=== PATIENT | female | born 1960 | race Caucasian/White ===

== ENCOUNTER 2022-05-09 05:08 | Observation (INO) ==
--- NOTE | 2022-04-18 09:10 | PAT Medication Instructions ---
Medication Instructions Date of Service April 18, 2022 Home Medications bupropion HBr 348 mg tablet,extended release 24 hr 348 mg PO QAM bupropion HBr 522 mg tablet,extended release 24 hr 522 mg PO QAM metformin 850 mg tablet 425 mg PO QAM semaglutide 0.25 mg or 0.5 mg (2 mg/1.5 mL) subcutaneous pen injector (Ozempic) 0.5 mg subcut WK thyroid (pork) 30 mg tablet ([place] Thyroid) 30 mg PO QAM Continue as directed semaglutide 0.25 mg or 0.5 mg (2 mg/1.5 mL) subcutaneous pen injector (Ozempic) 0.5 mg subcut WK DO NOT take the morning of surgery metformin 850 mg tablet 425 mg PO QAM Take morning of surgery With a small sip of water, OTHERWISE NOTHING TO EAT OR DRINK AFTER MIDNIGHT: bupropion HBr 348 mg tablet,extended release 24 hr 348 mg PO QAM bupropion HBr 522 mg tablet,extended release 24 hr 522 mg PO QAM thyroid (pork) 30 mg tablet ([place] Thyroid) 30 mg PO QAM Other Notes If you have any questions please call us at [phone] or [phone] or [phone] or [phone]
--- NOTE | 2022-04-19 10:00 | History & Physical Report ---
Date of Service April 19, 2022 date of surgery: 05/02/22 Procedure: Right Total Knee Arthroplasty Surgeon: Luis Alberto Welch Assessment & Plan (1) Arthritis of right knee: Plan: Risk and benefits of procedure discussed in detail, patient like to proceed with right total knee replacement. She will need medical clearance from her PCP prior to the surgery, she is scheduled for her preadmission testing later today. She will also do her preop physical therapy appointment. Will place on aspirin 81 mg twice a day for 1 month postop DVT prophylaxis, will do overnight stay at the hospital discharge the following day with in-home physical therapy x2 weeks. Follow-up in our office 2 weeks postop for routine postoperative care, sooner if she is having any issues The risks and benefits have been discussed including, but not limited to, risk of infection, nerve injury, stiffness, loss of motion, failure to improve, etc. Reasonable outcomes and options of treatment were discussed. An explanation of appropriate alternatives to the procedure that may be advantageous were discussed and their risks and benefits, as well as the risks and benefits of not proceeding with treatment. I offered to answer any additional inquiries concerning the treatment involved. All the patient's questions were answered. The patient is agreeable, understanding of the treatment plan and alternatives, and wishes to proceed with the treatment plan. History of Present Illness Chief Complaint: Right knee pain Primary Care Provider: Marcella Brooks Lanreluz maria Beatriz is a 61 year old female who complains of right knee pain, presents for pre-op evaluation prior to a right total knee replacement by Dr Welch at [facility], [place]. she complains of pain, crepitus, decreased range of motion, instability and stiffness in her right knee. she states that the symptoms have been chronic and non-traumatic. Currently the patient states that the symptoms are moderate- severe. The pain is described as aching, sharp and throbbing. Her symptoms are aggravated by ascending stairs, daily activities, first steps while awake walking. she had prior left TKA by Dr Turner in 2016. Allergies Allergy/AdvReac Type Severity Reaction Status Date / Time No Known Allergies Allergy Verified 04/17/22 14:03 Home Medications Medication Instructions Recorded Confirmed Type bupropion HBr 348 mg 348 mg PO QAM 03/19/22 04/17/22 History tablet,extended release 24 hr bupropion HBr 522 mg 522 mg PO QAM 03/19/22 04/17/22 History tablet,extended release 24 hr metformin 850 mg tablet 425 mg PO QAM 03/19/22 04/17/22 History semaglutide 0.25 mg or 0.5 mg (2 0.5 mg subcut WK 03/19/22 04/17/22 History mg/1.5 mL) subcutaneous pen injector (Ozempic) thyroid (pork) 30 mg tablet 30 mg PO QAM 03/19/22 04/17/22 History ([place] Thyroid) Past Med/Surg History Medical History Depression Diabetes mellitus, type 2 History of COVID-2019 Hypothyroidism Morbid obesity Osteoarthritis Sleep apnea CPAP (compliant) Surgical History History of cataract surgery left History of open reduction and internal fixation (ORIF) procedure right ankle History of total left knee replacement Hx of colonoscopy S/P foot surgery left foot bone aneurysm at [facility] (Dr Frederick) 02/2022 Family History Other No family history of adverse response to anesthesia Social History Smoking Status: Never smoker Second Hand Exposure: No; Hx Alcohol Use: Yes Alcohol type: beer Hx Substance Use: No Preferred Language: Ukrainian Communication Ability: Effective Dairy Farm Operator Required: No Beliefs That Will Affect Care: None Current Living Situation: Spouse Feels Safe at Home: Yes Assistive Devices: CPAP and Glasses Review of Systems Review of Systems: All systems reviewed & are unremarkable except as noted in HPI & below Constitutional: no fever, no chills and no sweats Respiratory: no cough and no dyspnea Cardiovascular: no chest pain, no dyspnea and no orthopnea Gastrointestinal: no abdominal pain, no nausea and no vomiting Musculoskeletal: as per Subjective / HPI Physical Exam Physical Exam: HT: 5ft 4in WT: 112.95kg Constitutional: WD/WN, vitals as above no acute distress Respiratory: normal respiratory effort, lungs clear to auscultation no respiratory distress, no labored breathing and does not use accessory muscles Cardiovascular: RRR, no murmur, no edema Gastrointestinal (Abdomen): normal bowel sounds, soft, nontender, no hepatosplenomegaly Musculoskeletal: Knee: + knee abnormal to inspection (Right Knee:), + effusion (+1 effusion), + limited ROM of knee (ROM 0/3/110), + knee ROM with crepitation, + joint line tenderness (medial joint line) and + Joel's sign positive; no deformity, no skin erythema, no ecchymosis, no valgus laxity, no varus laxity, anterior drawer test negative, Ramone's sign negative and pivot shift test negative Results & Data Results & Data ([facility]) Diagnostic Findings Right Knee X-ray: Right knee series showing advanced degenerative changes to the right knee, narrowing of the medial compartment and patello-femoral joint with patellar spurring noted, findings showing joint space narrowing of the medial compartment and patello-femoral joint, osteophyte formation and subchondral sclerosis noted. overall varus alignment. no acute bony pathology noted.
--- NOTE | 2022-04-19 10:27 | Anesthesiology Consultation ---
Date of Service April 19, 2022 Assessment & Plan (1) Encounter for pre-operative examination: - COVID screening: Per assessment on 04/19: No known COVID-19 positive contacts or current COVID-19 related symptoms. Travel screen negative. At surgeon discretion if preop Covid testing being done. - Check BSG AM DOS - Outpatient joint assessment: Pt currently scheduled for inpatient pathway. If surgeon requests review for outpatient joint pathway, patient is not recommended candidate for outpatient joint program from anesthesia standpoint. Chart Review Chart Review: Acceptable Risk for Surgery and Patient seen in Pre Admission Testing Teaching & Discussion Pre-Anesthesia Teaching/Discussion Notes: Instructed NPO after midnight before surgery,except medications with 15 cc of water. Medication instructions provided according to the PAT guidelines. History Surgery Operation Date: 05/02/22 12:10 Proposed Procedures p Right Total Knee Arthroplasty - Luis Alberto Welch DO Height/Weight Height: 5 ft 4 in Weight: 112.7 kg Allergies Allergy/AdvReac Type Severity Reaction Status Date / Time No Known Allergies Allergy Verified 04/17/22 14:03 Medications Home Medications Medication Instructions Recorded Confirmed Last Taken bupropion HBr 348 mg 348 mg PO QAM 03/19/22 04/17/22 03/22/22 06:30 tablet,extended release 24 hr bupropion HBr 522 mg 522 mg PO QAM 03/19/22 04/17/22 03/22/22 06:30 tablet,extended release 24 hr metformin 850 mg tablet 425 mg PO QAM 03/19/22 04/17/22 03/21/22 semaglutide 0.25 mg or 0.5 mg (2 0.5 mg subcut WK 03/19/22 04/17/22 03/16/22 mg/1.5 mL) subcutaneous pen injector (Ozempic) thyroid (pork) 30 mg tablet 30 mg PO QAM 03/19/22 04/17/22 03/22/22 06:30 ([place] Thyroid) Past Medical History Medical History Depression Diabetes mellitus, type 2 History of COVID-19 2020 Hypothyroidism Morbid obesity Osteoarthritis Sleep apnea CPAP (compliant) Exercise / Class Metabolic Activity III < 4 Walking/Shop/Light housework (one FS (no CP, + OB)) Past Family History Family History Other No family history of adverse response to anesthesia Past Surgical History Surgical History History of cataract surgery left History of open reduction and internal fixation (ORIF) procedure right ankle History of total left knee replacement Hx of colonoscopy S/P foot [facility] (Dr Frederick) 02/2022 Past Anesthesia History No Family Hx of Anesthesia Complications and Other (Pt reports that during ankle surgery, she had SAB done. She says that she was told her "ankle moved" during surgery causing "additional scar"/issues with the surgery.) History of PONV No Hx of PONV and No Hx of Motion Sickness Social History Smoking Status: Never smoker Do You Dip or Chew Tobacco: No Hx Alcohol Use: Yes Alcohol type: beer alcohol intake frequency: holidays/special occasions only Hx Substance Use: No substance use type: does not use Review of Systems Patient denies chest pain, shortness of breath, reflux, cough, wheezing, palpitations. Physical Exam Vital Signs VITALS BP 128/65 P 88 TEMP 98.4 SP02 96%RA RESP 18 PHYSICAL Full cervical extension range of motion. Full TMJ range of motion. TMD __ finger breaths Mallampati Score 3 Dentition: intact, + 2 implants (sides) Lungs: clear throughout to auscultation Cardiac: regular rate and rhythm, no murmurs noted Spine: normal Carotid arteries: negative bruit Extremities: no edema Lab Results Anesthesia Preop Results Results Anesthesia Widget: WBC 10.18 K/ul (4.8-10.8) 04/19/22 Hgb 13.4 g/dl (12.0-16.0) 04/19/22 Hct 41.8 % (34.1-44.9) 04/19/22 Plt 344 K/uL (130-400) 04/19/22 Na 138 mmol/L (136-145) 04/19/22 K 4.1 mmol/L (3.5-5.1) 04/19/22 Cl 101 mmol/L (98-107) 04/19/22 CO2 28 mmol/L (21-32) 04/19/22 BUN 12 mg/dl (6-23) 04/19/22 Creat 0.74 mg/dl (0.6-1.2) 04/19/22 Glucose Level 92 mg/dl (70-99(Fasting)) 04/19/22 POC Glucose 107 mg/dl (70-99) H 03/22/22 PT 10.5 Seconds (9.0-12.0) 04/19/22 PTT 27.2 Seconds (21.0-31.0) 04/19/22 INR 1.0 (0.9-1.1) 04/19/22 HA1c 6.0 % (4.5-5.6) H 04/19/22 Urine Color Yellow 04/19/22 Urine Appearance Cloudy (Clear) A 04/19/22 Urine pH 5.5 (4.5-7.5) 04/19/22 Urine Specific Nelson 1.018 (1.000-1.030) 04/19/22 Urine Protein Negative (Negative) 04/19/22 Urine Glucose (UA) Negative (Negative) 04/19/22 Urine Ketones Negative (Negative) 04/19/22 Urine Blood Negative (Negative) 04/19/22 Urine Nitrite Negative (Negative) 04/19/22 Urine Bilirubin Negative (Negative) 04/19/22 Urine Urobilinogen Negative (Negative) 04/19/22 Urine Leukocyte Esterase Negative (Negative) 04/19/22 Urine WBC (Auto) 1-5 /hpf (0-5) 04/19/22 Urine RBC (Auto) 0-4 /hpf (0-4) 04/19/22 Urine Hyaline Casts (Auto) 1-5 /lpf (0-5) 04/19/22 Urine Epithelial Cells (Auto) >30 /lpf (0-5) H 04/19/22 Urine Bacteria (Auto) 1+ (Negative) H 04/19/22 Blood Type B Positive 04/19/22 Antibody Screen NEGATIVE 04/19/22 Testing Laboratory Results *Surgeon's office made aware of abnormal UA* Electrocardiogram Date: 04/19/22 NSR at [address] NS ST/TWA. Chest X-Ray Date: 04/19/22 FINDINGS: PA and lateral chest radiographs are compared to study dated 05/31/2015. The cardiomediastinal silhouette is unremarkable. Linear atelectasis is seen in the left lower lung. The lungs and pleural spaces are otherwise clear. There is no pneumothorax. The skeletal structures are osteopenic. The bony thorax appears intact. IMPRESSION: No active disease in the chest. COVID-19 Risk Screen Screening Information COVID-19 Screen Date: 04/19/22 Exposure 21 Days Family/Household +COVID Last 21 Days: No Exposure 10 Days Any COVID Exposure Last 10 Days: No Symptoms Last 10 Days Experienced COVID Sx Last 10 Days: No + COVID 0-90 Days COVID + in Last 0-90 Days: No
[2022-05-09] MEDS ORDERED: ACETAMINOPHEN 500 MG TAB PO SCH (06:00)
[2022-05-09] MEDS ORDERED: ceFAZolin 2000MG 2,000 MG/15 ML SYR IV SCH (06:00)
[2022-05-09] MEDS ORDERED: CeleBREX 200 MG CAP PO SCH (06:00)
[2022-05-09] MEDS ORDERED: FAMOTIDINE 20 MG TAB PO SCH (06:00)
[2022-05-09] MEDS ORDERED: dexAMETHasone 4 MG TAB PO SCH (06:00)
[2022-05-09] MEDS ORDERED: TRANEXAMIC ACID 1,000 MG **IV Pre-op IV SCH (06:00)
[2022-05-09] MEDS ORDERED: LR 500ML BOLUS, THEN 15ML/HR IV SCH (06:00)
[2022-05-09] MEDS ORDERED: METOCLOPRAMIDE HCL 10 MG TABLET PO SCH (06:00)
[2022-05-09] MEDS ORDERED: TRANEXAMIC ACID 1,000 MG **IV Intra-op IV SCH (06:00)
[2022-05-09] MEDS ORDERED: GABAPENTIN 600 MG DOSE PO SCH (06:00)
[2022-05-09] MEDS ORDERED: ROPIVACAINE 0.5% HCL/PF 150 MG, BUPIVACAINE 0.75% MPF 20 ML, EPINEPHrine 30MG/30ML (OR ... INFIL SCH (06:00)
[2022-05-09] MEDS ORDERED: ROPIVACAINE 0.5% 5 MG/ML 30 ML VIAL ONE (06:27)
[2022-05-09] MEDS ORDERED: BUPIVACAINE 0.5 % 5 MG/1 ML PF 10ML VIAL ONE (06:27)
[2022-05-09] MEDS ORDERED: EPINEPHrine INJ 1 MG/ML AMP ONE (06:27)
[2022-05-09] MEDS ORDERED: fentaNYL citrate 100 MCG/2 ML VIAL ONE (06:43)
[2022-05-09] MEDS ORDERED: MIDAZOLAM HCL 1 MG/ML 2ML VIAL ONE ×2 (06:43→06:44)
[2022-05-09] MEDS ORDERED: PROPOFOL IV EMULSION 10 MG/ML 20 ML VIAL IV ONE (06:55)
[2022-05-09] MEDS ORDERED: ATROPINE SULFATE 0.1 MG/ML 10ML SYR IV PRN (06:56)
[2022-05-09] MEDS ORDERED: fentaNYL citrate 100 MCG/2 ML VIAL IV PRN (06:56)
[2022-05-09] MEDS ORDERED: ONDANSETRON INJ 2 MG/ML 2 ML VIAL IV PRN ×2 (06:56→12:33)
[2022-05-09] MEDS ORDERED: ePHEDrine sulfate 50 MG/ML AMP IV PRN (06:56)
[2022-05-09] MEDS ORDERED: PROMETHAZINE HCL 12.5 MG in SODIUM CHLORIDE 0.9% 50 ML IV PRN (06:56)
[2022-05-09] MEDS ORDERED: HYDROmorphone INJ 2 MG/ML SYR/VIAL IV PRN (06:56)
[2022-05-09] MEDS ORDERED: ORTHO JOINT ANESTHETIC ONE (07:09)
--- NOTE | 2022-05-09 07:18 | History & Physical Bridge Note ---
Date of Service May 09, 2022 History & Physical Bridge Note I have examined the patient, reviewed the History & Physical and in the interval since the performance of the History & Physical I have noted the following changes of clinical significance: no changes noted
--- NOTE | 2022-05-09 11:38 | XRay Report ---
XR knee RT 2V routine CLINICAL HISTORY: Postoperative evaluation. COMPARISON: Right knee radiographs March 21, 2016. FINDINGS: Alignment of the total right knee arthroplasty is anatomic. There is no periprosthetic fra cture or unexpected radiopaque foreign body. Surgical drains are in place. IMPRESSION: Expected findings following total right knee arthroplasty. ACT 112: Negative or not required by law. Electronically signed by: Torsten Adair M.D. 05/09/2022 10:58 AM
[2022-05-09] MEDS ORDERED: bisacodyL 10 MG SUPP PR PRN (12:33)
[2022-05-09] MEDS ORDERED: METOCLOPRAMIDE HCL INJ 5 MG/ML 2 ML VIAL IV PRN (12:33)
[2022-05-09] MEDS ORDERED: PHARMACY GLYCEMIC MGMT CONSULT PRN (12:33)
[2022-05-09] MEDS ORDERED: MAGNESIUM HYDROXIDE SUSP 30 ML UDC PO PRN (12:33)
[2022-05-09] MEDS ORDERED: NALOXONE HCL 0.4 MG/1 ML VIAL/CARP IV PRN (12:33)
--- NOTE | 2022-05-09 12:33 | Anesthesiology Progress Note ---
Date of Service May 09, 2022 Anesthesia Post Procedure Vital Signs Vital Signs: Temp Pulse Resp BP Pulse Ox O2 Del Method 05/09/22 05:35 36.9 C 81 20 149/83 H 95 Room Air Transfer of Care Handoff Completed per policy Notes Mental Status: alert / awake / arousable and participated in evaluation Patient Amnestic to Procedure: Yes Nausea / Vomiting: adequately controlled Pain: adequately controlled Airway Patency, RR, SpO2: stable & adequate BP & HR: stable & adequate Hydration State: stable & adequate Anesthetic Complications: no major complications apparent
--- NOTE | 2022-05-09 12:33 | Operative Report ---
Post Operative Report Pre & Post Diagnosis Operation Date: 05/09/22 07:15 Pre-Op Diagnosis: Osteoarthritis Knee Right Post-Op Diagnosis: Osteoarthritis Knee Right I identified the patient and participated in the time-out.: Yes Procedure Operation Date: 05/09/22 07:15 Actual Procedures p Right Total Knee Arthroplasty(Right) utilizing [place] [employer] Embedded Chat journey 2 patient matched total knee arthroplasty size femur 4 tibia 3 polythirteen patella 32 clemente- Luis Alberto Welch DO Surgeon Luis Alberto Welch DO Associate Professor Of Criminal Justice NOA Siddiqi Estimated Blood Loss 5 Findings Consistent with Post-Op Diagnosis Patient presents with severe end-stage tricompartmental degenerative joint disease of the right knee no response to conservative management eburnated [id number] marginal osteophyte subchondral sclerosis moderate to large effusion Specimens Bone card Drains Medium bore Hemovac Anesthesia Type MAC Spinal Regional Complications none Disposition Accompanied Patient To Recovery: No Disposition: Recovery Room Indications Patient presents after failed attempted conservative management clinic physical therapy anti-inflammatories relative rest activity modification corticosteroid injection viscosupplementation above intraoperative findings were noted Description of Procedure After proper prepping and draping of the Right lower extremity anterior midline incision was made over the region of the extensor extensor mechanism after meticulous hemostasis was obtained and maintained in subcutaneous tissues a medial parapatellar incision was made The patella was subluxed lateralward the medial lateral gutter were cleaned from any hypertrophic synovitis and scar tissue of the distal femoral block was placed and the distal femoral osteotomy cut was made subsequently the chamfers anterior and posterior osteotomy cuts were made utilizing the 4-in-1 block the tibia was subsequently subluxed ant eriorward medial and ateral meniscal remnants were excised in their entirety remnants of the anterior and posterior cruciate ligaments were excised in their entirety excellent exposure of the proximal tibia was obtained the tibial osteotomy guide was placed on the proximal tibial osteotomy cut was made once again the knee was irrigated with copious amounts of sterile saline solution the patella was subsequently everted lateralward thickened scar tissue around the patella was removed the patella was subsequently cut utilizing a freehand technique and was drilled prepared for final preparation and placement of patella socially flexion-extension gaps were checked and the equal and symmetric trials were placed to the appropriate femoral and tibial trials with poly-spacer being placed for equal flexion and extension gaps and full range of motion including extension to 0 and flexion to 140 the trial components after having been taken to recovery range of motion was subsequently removed meticulous hemostasis was obtained and maintained subsequently a knee block injection of joint cocktail including ropivacaine 0.5% 150 mg. Bupivacaine 0.5% epinephrine 1-200,030 mL's toradol 30 mg dexamethasone 4 mg ketamine 10 mg clonidine 100 micrograms normal saline solution 30 mg was infiltrated into the soft tissues of the posterior knee medial lateral gutters and periosteal synovium special at tention was paid to protect neurovascular structures at all times subsequently trial components having been removed the knee was irrigated with sterile saline solution. debris was removed the proximal tibia was subsequently prepared and was made ready for the placement of the tibial component tibial component was also cemented and tamped into position the femoral component was subsequently placed and cemented in the position the patellar component was subsequently cemented in position because hemostasis once again obtained and maintained wound having been thoroughly irrigated with debridement and debridement lavage was performed as well as a medial parapatellar incision closed with #1 Vicryl in interrupted fashion subcutaneous was closed with #2 Vicryl skin was closed with skin clips. PA-C was necessary for prepping and drapping as well as wound closure of deep fascia Sub cutaneous tissue and skin and was necessary for the case. A sterile compressive dressing was placed patient was taken to recovery in stable condition of report dictated by Yuri I attest to the content of the Intraoperative Record and any orders documented therein. Any exceptions are noted below.Due to the complex nature of the procedure, the entire surgery was performed with the operational assistance of NOA Siddiqi. The butcher's assistant, under direct supervision, was involved in the actual performance of all aspects of the surgical procedure including hemostasis, tissue retraction and incision, instrument management, patient positioning, and wound closure. I attest to the content of the Intraoperative Record and any orders documented therein. Any exceptions are noted below.
[2022-05-09] MEDS ORDERED: SODIUM CHLORIDE 0.9% 1000ML 1,000 ML IV SCH (12:45)
[2022-05-09] MEDS ORDERED: HYDROmorphone INJ 0.5 MG/0.5 ML SYR IV PRN (13:06)
--- NOTE | 2022-05-09 13:50 | Pharmacy Report ---
Pharmacy Glycemic Short Note 2 - Date of Service May 09, 2022 - Glycemic Short BSG Results (Last 24 hours): 05/09/22 05/09/22 05/09/22 06:13 09:38 12:15 POC Glucose 104 H 138 H 135 H OUTPATIENT ANTIDIABETIC REGIMEN: * Ozempic 2mg/1.5 mL: 0.5mg SQ Weekly * Metformin 850mg tablet: 425mg PO QAM ASSESSMENT: * Mrs Stubbs is a 61 year old type 2 diabetic patient whom pharmacy has been consulted to manage the glycemic care of following total knee arthroplasty. * Outpatient, the patient manages their diabetes without the utilization of insulin. HbA1c on 04/19/22 was measured as 6%. * Prior to pharmacy consultation, fasting BSG this AM was 104 mg/dL, and lunchtime BSG was 135 mg/dL. One dose of dexamethasone 8mg was given PO pre- op. * The patient will be started on a conservative bolus-only regimen calculated between a stress factor of 1 and 2 to offset hyperglycemia caused by dexamethasone. Because this was a single dose of dexamethasone, and fasting blood glucose was within goal range this morning without the use of any insulin, basal coverage will be withheld at this time. PLAN FOR INPATIENT GLYCEMIC CONTROL: * Hold outpatient oral diabetes medications * Basal insulin * Reevaluate potential need moving forward; hold for now. * Bolus insulin * NovoLog per scale ACHS or Q6hrs while NPO * Goal Range: Low 110 mg/dL - High 140 mg/dL * Correction Factor: 25 mg/dL/unit * Nutritional / Prandial insulin per carb ratio of 1 unit per 8 grams CHO consumed
[2022-05-09] MEDS ORDERED: GLUCAGON FOR INJ 1 MG VIAL IM PRN (14:15)
[2022-05-09] MEDS ORDERED: GLUCOSE 10 TAB/TUBE PO PRN (14:15)
[2022-05-09] MEDS ORDERED: GLUCOSE 40% GEL 15 GM TUBE PO PRN (14:15)
[2022-05-09] MEDS ORDERED: CARBOHYDRATES FOR HYPOGLYCEMIA PO PRN (14:15)
[2022-05-09] MEDS ORDERED: DEXTROSE 50% 50 ML SYRINGE IV PRN (14:15)
[2022-05-09] MEDS: oxyCODONE HCL IR 5 MG TAB (IMMEDIATE RELEASE) PO PRN (16:41)
[2022-05-09] MEDS: ceFAZolin 2000MG 2,000 MG/15 ML SYR IV SCH ×2 (16:42→23:37)
[2022-05-09] MEDS: INSULIN ASPART PER UNIT SC SCH ×2 (17:56→22:11)
[2022-05-09] MEDS ORDERED: TRANEXAMIC ACID / 0.7% NACL 1,000 MG/100 ML BAG IV SCH (18:00)
[2022-05-09] MEDS: KETOROLAC TROMETHAMINE 15 MG/ML VIAL IV PRN (20:10)
[2022-05-09] MEDS: DOCUSATE SODIUM 100 MG CAP PO SCH (20:11)
[2022-05-09] MEDS: ASPIRIN 81 MG ECTAB PO SCH (20:11)
[2022-05-09] MEDS ORDERED: SENNA 8.6 MG TAB PO SCH (21:00)
--- NOTE | 2022-05-10 06:04 | Orthopedic Progress Note ---
Date of Service May 10, 2022 Assessment & Plan (1) History of total right knee replacement: Plan: POD #1 s/p Right TKA pt/ot dvt proph with GORDON/SCD/ASA plan for d/c home with home health PT, d/c hemovac prior to d/c Admission and Anticipated Discharge Date Admission Date: May 09, 2022 Subjective POD #1 s/p Right TKA Review of Systems Constitutional: no fever, no chills and no sweats Respiratory: no cough and no dyspnea Cardiovascular: no chest pain and no dyspnea Gastrointestinal: no abdominal pain, no nausea and no vomiting Physical Exam Physical Exam: Vital Signs Temp 36.5 C 05/10/22 03:46 Pulse 71 05/10/22 03:46 Resp 20 05/10/22 03:46 BP 165/74 H 05/10/22 03:46 Pulse Ox 97 05/10/22 03:46 O2 Del Method 05/10/22 03:46 O2 Flow Rate 2 05/09/22 12:51 Intake & Output 05/09/22 05/09/22 05/10/22 06:59 18:59 06:59 Intake Total 2145 / 2405 260 / 2405 Output Total 495 / 530 35 / 530 Balance 1650 / 1875 225 / 1875 Weight 113.6 kg Intake: IV 605 / 605 Lactated Ringe r's 1,000 ml @ 15 0 / 0 mls/hr IV .Q24 H TIMBO Rx#: [id number] Sodium Chlorid e 0.9% 1000ML 1, 405 / 405 000 ml @ 100 m ls/hr IV .Q10H TIMBO Rx#:[id number] Tranexamic Aci d / 0.7% NaCl 1, 200 / 200 000 mg In 100 ml @ 600 mls/hr IV Q6H TIMBO Rx# :[id number] IV Perioperative 1300 / 1300 Oral 240 / 500 260 / 500 Output: Urine 400 / 400 Estimated Blood Loss 5 / 5 Drain Output 90 / 125 35 / 125 Right Knee 90 / 125 35 / 125 Other: # Unmeasured Voi ds 1 1 Weight Measureme nt Method Standing Scale Musculoskeletal: Right Leg: NVDI, calf SNT, negative mai sign. DP palpable, able to wiggle toes/ankle movement without difficulty. dressing clean dry and intact. Results & Data ([facility]) Vital Signs (Past 12 Hours) Vital Signs Temp Pulse Resp BP Pulse Ox O2 Del Method 05/10/22 03:46 36.5 C 71 20 165/74 H 97 Room Air 05/09/22 20:00 BiPAP 05/09/22 23:06 36.6 C 75 20 137/71 97 CPAP 05/09/22 21:00 36.6 C 74 18 136/77 97 Room Air Laboratory Results Laboratory Results POC Glucose 123 mg/dl (70-99) H 05/09/22 20:38 SARS-CoV-2, RNA, NAAT NEGATIVE (NEGATIVE) 05/09/22 05:25 Impressions Knee X-Ray 05/09/22 11:20 XR knee RT 2V routine CLINICAL HISTORY: Postoperative evaluation. COMPARISON: Right knee radiographs March 21, 2016. FINDINGS: Alignment of the total right knee arthroplasty is anatomic. There is no periprosthetic fracture or unexpected radiopaque foreign body. Surgical drains are in place. IMPRESSION: Expected findings following total right knee arthroplasty. ACT 112: Negative or not required by law. Electronically signed by: Torsten Adair M.D. 05/09/2022 10:58 AM
[2022-05-10 08:03] LABS: BUN Creatinine Ratio 23.8 (10-20); Calcium 9.1 mg/dl (8.5-10.1); Creatinine Clr Calc Pharmacy 114.4 ml/min; Est GFR (African American) 111.4 ml/min; Est GFR (Non-African American) 96.1 ml/min; Potassium 4.1 mmol/L (3.5-5.1)
[2022-05-10] MEDS: KETOROLAC TROMETHAMINE 15 MG/ML VIAL IV PRN (08:22)
[2022-05-10] MEDS ORDERED: MULTIVITAMIN TAB PO SCH (09:00)
[2022-05-10] MEDS: DOCUSATE SODIUM 100 MG CAP PO SCH (09:18)
[2022-05-10] MEDS: ASPIRIN 81 MG ECTAB PO SCH (09:18)
[2022-05-10 09:27] LABS: Hemoglobin 10.7 g/dl (12.0-16.0); Mean Corpuscular Hemoglobin 28.1 pg (25.0-34.0); Mean Corpuscular Hgb Conc 32.4 g/dL (32.0-36.0); Mean Corpuscular Volume 86.6 fL (80.0-100.0); Mean Platelet Volume 9.9 fL (9.4-12.4); Platelet Count 288 K/uL (130-400); RDW Coefficient of Variation 13.7 % (11.5-14.5); RDW Standard Deviation 43.8 fL (36.4-46.3); Red Blood Count 3.81 M/uL (4.20-5.40); White Blood Count 13.62 K/ul (4.8-10.8)
[2022-05-10] MEDS: INSULIN ASPART PER UNIT SC SCH ×2 (09:35→12:34)
[2022-05-10] MEDS: oxyCODONE HCL IR 5 MG TAB (IMMEDIATE RELEASE) PO PRN (12:33)
[2022-05-10] MEDS ORDERED: CeleBREX 200 MG CAP PO SCH (21:00)
--- NOTE | 2022-05-22 15:23 | Discharge Summary ---
Date of Service May 22, 2022 Admission HPI Per Admitting Provider Beatriz is a 61 year old female who complains of right knee pain, presents for pre- op evaluation prior to a right total knee replacement by Dr Whitaker at [facility]. she complains of pain, crepitus, decreased range of motion, instability and stiffness in her right knee. she states that the symptoms have been chronic and non-traumatic. Currently the patient states that the symptoms are moderate- severe. The pain is described as aching, sharp and throbbing. Her symptoms are aggravated by ascending stairs, daily activities, first steps while awake walking. she had prior left TKA by Dr Turner in 2016. Principal Diagnosis Right knee osteoarthritis Discharge Exam Constitutional WD/WN, vitals as above no acute distress Musculoskeletal Knee: + surgical incision (Right knee dressing C/D/I); no skin erythema and no ecchymosis Neurologic normal touch/pain/proprioception Psychiatric A+Ox3, euthymic affect Speech: normal rate/rhythm/volume of speech Discharge Data Allergies Allergy/AdvReac Type Severity Reaction Status Date / Time No Known Allergies Allergy Verified 05/09/22 05:41 Procedures Performed Operation Date: 05/09/22 07:15 Actual Procedures p Right Total Knee Arthroplasty(Right) - Luis Ablerto Whitaker, DO Ordered Studies 05/02/22 05:00 US - OR guided needle placemen Routine 05/09/22 05:00 US - OR guided needle placemen Routine Hospital Course (1) History of total right knee replacement: POD #1 s/p Right TKA pt/ot dvt proph with GORDON/SCD/ASA plan for d/c home with home health PT, d/c hemovac prior to d/c Total Time Total Time Spent Total Time Spent (In Minutes): 20 Discharge Plan Discharge Items Patient Disposition: Home - Home Health Services Reason For Visit: Osteoarthritis Knee Right Discharge Diagnosis: Right knee osteoarthritis Activity: Per Instructions section Non-emergency contact: Surgeon Call non-emergency contact if: your pain is not controlled, your pain is worsening and your temperature is above 101 Follow-up/Referrals: Marcella Gillis M.D. [Primary Care Provider] - Diet: Regular Addtl Attending Provider Instructions: ACTIVITY RECOMMENDATIONS: SELF CARE INSTRUCTIONS AFTER TOTAL KNEE REPLACEMENT A. You may need to continue a physical therapy program after discharge from the hospital. There are several options available to you. Your doctor will assist you in selecting the best one for you. 1. An out-patient facility 3 times a week for therapy. 2. Home therapy for 1 to 2 weeks with outpatient therapy to follow. 3. Continue working on all exercises taught by physical therapy three times a day for 20 minutes on non-therapy days. Your goals should be to increase the bending of your knee to 90 degrees and beyond and to fully straighten your knee. Ice and elevate knee after exercise. B. Weight as tolerated with a walker or as instructed by your physician. C. It is okay to shower if minimal to no drainage from incision. No Baths. Do not soak wound. D. Make walking a part of your daily routine. Be up as much as comfortable with rest periods throughout the day. Rest with leg elevation is very important. Use the ice wrap frequently for the first 3-4 weeks. E. There are no restrictions on activities. You may ride in a car, shop, participate in ball warper tender and all social activities. F. Wear the long elastic stockings (GORDON hose) 20 hours a day for one month after surgery. They can be removed several times a day for laundering and when showering. G. NURYS dressing: You have a NURYS dressing on your surgical wound. It will remain in place for 7 days from surgery. You will be provided with a booklet with the do's and don'ts with the dressing in place. After 7 days, the dressing may be removed. If there is drainage from the surgical incision, you may cover the wound with dry dressings. H. You have the Dermabond Prineo dressing on your incision. It will be removed at your first post operative visit. If the ends begin to come off the skin, you may cut the edges of it. You will be able to begin showering when instructed. There will be instructions given to take home with you. SPECIAL CARE INSTRUCTIONS: VERY IMPORTANT TO READ AND REVIEW A. Take Aspirin (blood thinning medications) as directed by your doctor. If on Coumadin, have a pro-time (blood test) drawn according to your doctor's instructions. This will tell the doctor how well the Coumadin is thinning your blood. B. There are a few signs you need to watch for after you are home. Call [facility] if you notice any of the followin. Increased severe knee pain. Some pain is expected especially when you exercise. 2. Increased swelling in your leg or knee; pain or swelling of the calf muscle in either lower leg. 3. Any redness or fluid drainage from the incision. 4. Shortness of breath or chest pain. 5. A Temperature of 101 degrees F or greater. C. Please call [facility] at if you have any concerns or questions about your operation or recovery. The doctor or his nurse will return your call promptly. D. You must take antibiotics before dental work, bladder, bowel or other surgery. Your doctor will provide you with a permanent care to carry describing this precaution. FOLLOW UP VISIT: If appointment is not already scheduled: Please call [facility] to make a follow-up appointment for 2 weeks after your surgery at . Pending Studies at Discharge: No Stand-Alone Forms: My [facility] [employer], Smoking Cessation Medications and DC Order Prescriptions: New aspirin 81 mg Tablet,Delayed Release (Dr/Ec) 81 mg PO BID 30 Days Qty: 60 0RF celecoxib [Celebrex] 200 mg Capsule 200 mg PO BID 30 Days Qty: 60 0RF oxycodone 5 mg Tablet 5 - 10 mg PO Q6H PRN (Reason: pain) Qty: 30 0RF Rx Instructions: ongoing therapy, supervising dr jane whitaker. max 6 tabs in 24 hours cefadroxil 500 mg capsule 500 mg PO BID 14 Days Qty: 28 0RF acetaminophen 500 mg capsule 500 - 1,000 mg PO Q8 21 Days Qty: 126 0RF oxycodone 5 mg tablet 5 - 10 mg PO Q6H PRN (Reason: pain) Qty: 30 0RF Rx Instructions: ongoing therapy, supervising dr jane whitaker. max 6 tabs in 24 hours Continued metformin 850 mg Tablet 425 mg PO QAM bupropion HBr 348 mg Tablet Extended Release 24 Hr 348 mg PO QAM bupropion HBr 522 mg Tablet Extended Release 24 Hr 522 mg PO QAM thyroid (pork) [[place] Thyroid] 30 mg Tablet 30 mg PO QAM Ozempic 0.25 mg or 0.5 mg(2 mg/1.5 mL) Pen Injector 0.5 mg SUBCUT WK Admission Data Admit Date/Time: 01/25/23 11:48 Attending Provider: Luis Alberto Whitaker Admit Provider: Luis Alberto Whitaker Primary Care Provider: Marcella Gillis Other Providers: [facility] ; [facility] Other Interventions: Discharge Summary Assessment (RN) Last Done: 05/10/22 11:28
== END 2022-05-10 13:36 | disposition home health service (06) ==
LOC: 3E 05:08 → ASU 05:08